=== PATIENT | female | born 1965 | race Caucasian/White ===

== ENCOUNTER 2017-02-25 11:25 | Emergency (ER) | payer BC, SELFPAY ==
[2017-02-25] MEDS ORDERED: traMADol HCl 50 MG TAB ONE (12:22)
[2017-02-25] MEDS ORDERED: HYDROcodone/Acetaminophen 5/325 mg Tablet ONE (12:28)
--- NOTE | 2017-02-25 17:33 | RAD ---
RIGHT ELBOW 2 VIEWS: Date: 02/25/17 FINDINGS: No fracture or joint effusion seen. All bones appeared intact. IMPRESSION: No acute findings. POS: HOME
--- NOTE | 2017-02-25 17:33 | RAD ---
RIGHT SHOULDER 3 VIEWS: Date: 02/25/17 FINDINGS: No fracture, dislocation, or AC joint widening seen. The visible adjacent lung was clear. The visibl e ribs showed no fracture. IMPRESSION: No acute findings. POS: HOME
--- NOTE | 2017-02-25 17:34 | RAD ---
RIGHT FOREARM 2 VIEWS: Date: 02/25/17 FINDINGS: No fracture seen. Radius and ulna appear intact. IMPRESSION: No acute findings. POS: HOME
--- NOTE | 2017-02-25 17:35 | RAD ---
RIGHT HUMERUS 2 VIEWS: Date: 02/25/17 Two views show no fracture. The humerus appears intact. IMPRESSION: No acute findings POS: HOME
--- NOTE | 2017-02-25 17:36 | RAD ---
RIGHT HIP 2 VIEWS: Date: 02/25/17 FINDINGS: No fracture was demonstrated. The hip joint is normal in width and the articular surfaces are smooth . The adjacent pubic ring appears intact. Some soft tissue calcifications are noted laterally. IMPRESSION: No acute bony findings. POS: HOME
== END 2017-02-25 12:42 | disposition home or self-care (01) ==
LOC: BURERS 11:25
DX: S43.401A Unspecified sprain of right shoulder joint, initial encounter (principal); G43.909 Migraine, unspecified, not intractable, without status migrainosus; I10 Essential (primary) hypertension; F41.9 Anxiety disorder, unspecified; F17.210 Nicotine dependence, cigarettes, uncomplicated; Z79.899 Other long term (current) drug therapy; W18.30XA Fall on same level, unspecified, initial encounter

== ENCOUNTER 2024-02-07 17:40 | Emergency (ER) | payer OTHER ==
[2024-02-07 18:02] LABS: #Basophils 0.1 thou/uL (0.0-0.2); #Eosinphils 0.2 thou/uL (0.0-0.7); #Lymphocytes 2.8 thou/uL (1.20-3.40); #Monocytes 0.4 thou/uL (0.11-0.59); %Eosinophils 2.6 % (0.0-10.0); %Lymphocytes 37.8 % (21.0-51.0); %Neutrophils 53.5 % (42.0-75.0); Hematocrit 44.2 % (36.0-47.0); Hemoglobin 14.1 g/dL (12.0-16.0); Mean Corpuscular Hemoglobin 31.1 pg (27.0-31.0); Mean Corpuscular Volume 97.4 fl (78.0-98.0); Platelet Count 278 10x3/uL (130-400); RBC Distribution Width 12.1 % (11.5-14.5); Red Blood Cell (RBC) Count 4.54 mill/uL (4.20-5.40); White Blood Cell (WBC) Count 7.4 10x3/uL (4.8-10.8)
[2024-02-07 18:02] LABS: Bilirubin Negative (Negative); Blood, Urine Negative (Negative); Clarity Slightly Cloudy (Clear); Glucose, Urine (Dipstick) Negative (Negative); Ketone, Urine Negative (Negative); Leukocyte Negative (Negative); Nitrite Negative (Negative); Protein, Urine (Dipstick) Negative (Neg-Trace); Urobilinogen 0.2 mg/dL (Less than 2); pH, Urine 5.5 (5.0-9.0)
[2024-02-07 18:16] LABS: Bacteria/HPF 2+ HPF (None Seen); CAUTI Indications for Culture Dysuria,urgency,freq; RBC/HPF None Seen HPF (0-3); Renal Epithelial 0-3 HPF (None Seen); Yeast-Hyphae Rare HPF (None Seen)
[2024-02-07 18:17] LABS: Urine Culture Reflex No No
[2024-02-07 18:18] LABS: Pregnancy Test - Urine (BHCG) Negative (Negative); Pregu Control Background? CLEAR/WHITE (CLR/WHITE); Pregu Control Bar Appear? YES (CONTROL BAR)
[2024-02-07 18:20] LABS: Amphetamine Not Detected (NotDetected); Barbiturates Screen Detected (NotDetected); Benzodiazepine Screen Not Detected (NotDetected); Cocaine Metabolite Screen Not Detected (NotDetected); Methadone Not Detected (NotDetected); Methamphetamine Not Detected (NotDetected); Opiate Screen Not Detected (NotDetected); Oxycodone Screen Not Detected (NotDetected); Phencyclidine (PCP) Not Detected (NotDetected); THC/Cannabinoid Screen Not Detected (NotDetected); Tricyclic Screen Detected (NotDetected)
[2024-02-07 18:24] LABS: ALT (SGPT) 21 U/L (8-55); AST (SGOT) 18 U/L (5-34); Acetaminophen Less than 10 mcg/mL (Less than 10); Albumin 3.9 g/dL (3.5-5.0); Alcohol Less than 10.0 mg/dL (Less than 10); Alkaline Phosphatase 121 U/L (40-110); Anion Gap 17 mmol/L (10-20); BUN (Urea Nitrogen) 10 mg/dL (9.8-20.1); Bilirubin, Total 0.2 mg/dL (0.2-1.2); Calc. Creatinine Clearance 0 mL/min (70-130); Calcium 9.6 mg/dL (7.8-10.44); Carbon Dioxide 19 mmol/L (22-29); Chloride 111 mmol/L (98-107); Estimated GFR 82; Globulin 3.3 g/dL (2.4-3.5); Glucose 101 mg/dL (70-105); Potassium 3.6 mmol/L (3.5-5.1); Protein, Total 7.2 g/dL (6.0-8.3); Salicylate Less than 8.0 mg/dL (Less than 8.0); Sodium 143 mmol/L (136-145)
[2024-02-07 18:25] LABS: Troponin I Less than 0.010 ng/mL (< 0.028)
[2024-02-07] MEDS ORDERED: Ketorolac Tromethamine 30 MG (1 mL) VIAL ONE (18:43)
== END 2024-02-07 19:00 | disposition home or self-care (01) ==
LOC: BURERS 17:40
DX: S00.03XA Contusion of scalp, initial encounter (principal); R56.9 Unspecified convulsions; E11.40 Type 2 diabetes mellitus with diabetic neuropathy, unspecified; J44.9 Chronic obstructive pulmonary disease, unspecified; F17.290 Nicotine dependence, other tobacco product, uncomplicated; W01.0XXA Fall on same level from slipping, tripping and stumbling without subsequent striking against object, initial encounter
CPT/HCPCS: 70450; 71045; 72100; 80053; 80306; 80307; 81001; 81025; 84484; 85025; 96374; J1885

== ENCOUNTER 2024-03-04 00:27 | Emergency (ER) | payer OTHER ==
[2024-03-04] MEDS ORDERED: methylPREDNISolone Sod Succ/PF 125 MG/2 ML VIAL ONE (00:36)
== END 2024-03-04 00:59 | disposition home or self-care (01) ==
LOC: BURERS 00:27
DX: E11.42 Type 2 diabetes mellitus with diabetic polyneuropathy (principal); I50.9 Heart failure, unspecified; F17.290 Nicotine dependence, other tobacco product, uncomplicated
CPT/HCPCS: 96372; 99283; J2919